=== PATIENT | male | born 1990 | race Caucasian/White ===

== ENCOUNTER 2017-07-10 15:29 | Emergency (ER) | payer OTHER ==
[2017-07-10] MEDS: NORCO, ANEXSIA 5/325MG TABLET (HYDROcodone/ACETAMINOPHEN) PO (16:06)
== END 2017-07-10 16:22 | disposition home or self-care (01) ==
LOC: M ED 15:29
DX: G89.29 Other chronic pain (principal); M25.511 Pain in right shoulder; Z79.899 Other long term (current) drug therapy
CPT/HCPCS: 99283